=== PATIENT | male | born 1980 | race Caucasian/White ===

== ENCOUNTER 2021-02-06 23:51 | Inpatient (IN) ==
[2021-02-07] MEDS ORDERED: Ondansetron 4 MG/2 ML VIAL IVP PRN (02:48)
[2021-02-07] MEDS ORDERED: Melatonin 3 MG TABLET PO PRN (02:48)
[2021-02-07] MEDS ORDERED: Acetaminophen 325 MG TABLET PO PRN (02:48)
[2021-02-07] MEDS ORDERED: Naloxone 0.4 MG/ML INJ IVP PRN (02:48)
[2021-02-07] MEDS ORDERED: *HR* Promethazine 25 MG/ML VIAL IM PRN (02:48)
[2021-02-07] MEDS: 0.9 % Sodium Chloride 1,000 ML IVC SCH ×2 (03:31→09:44)
[2021-02-07 05:35] LABS: Bacteria,Urine Few per hpf (None-Few); Bilirubin,Urine Negative (Negative); Blood,Urine Negative (Negative); Clarity,Urine Clear (Clear); Color,Urine Light-Yellow (Yellow); Glucose,Urine (UA) Normal (Normal); Hyaline Casts,Urine Few per lpf (None Seen); Ketones,Urine Negative (Negative); Leukocyte Esterase,Urine Negative (Negative); Mucus,Urine Few per lpf (None-Few); Nitrite,Urine Negative (Negative); PH,Urine 5.5 pH Units (5.0-8.0); Protein,Urine 50 mg/dL (Neg-Trace); RBC,Urine 0-3 per hpf (0-3); Specific Gravity,Urine 1.018 (1.010-1.025); Squamous Epithelial Cell,Urine Few per hpf (None-Few); Urobilinogen,Urine Normal (Normal)
[2021-02-07] MEDS ORDERED: 0.9 % Sodium Chloride 1,000 ML IVC ONE (05:37)
[2021-02-07 05:46] LABS: Basophils # 0.1 K/mcL (0.0-0.2); Basophils % 0.5 %; Eosinophils # 0.1 K/mcL (0.0-0.6); Eosinophils % 1.3 %; Hemoglobin 14.2 g/dL (12.9-16.9); Immature Granulocytes % 0.1 % (0-4); Lymphocytes # 2.8 K/mcL (0.6-4.6); Lymphocytes % 30.2 %; Mean Corpuscular Hemoglobin 29.2 pg (28.0-33.3); Mean Corpuscular Volume 88.5 fL (83.0-100.0); Monocytes # 0.9 K/mcL (0.0-1.3); Monocytes % 9.3 %; Neutrophils # 5.5 K/mcL (1.6-8.9); Platelet Count 263 K/mcL (140-400); Red Blood Count 4.86 M/mcL (4.19-5.50); Red Cell Distribution Width 13.5 % (11.5-14.5); Segmented Neutrophils % 58.6 %; White Blood Count 9.3 K/mcL (4.3-11.1)
[2021-02-07 05:54] LABS: INR 1.1; Prothrombin Time 12.3 Seconds (9.4-12.1)
[2021-02-07 06:00] LABS: Protein/Creatinine Ratio,Urine 0.19 mg/mg (0.00-0.20); Sodium, Urine 75.8 mEq/L
[2021-02-07 06:05] LABS: Calcium 8.4 mg/dL (8.6-10.3); Magnesium 2.8 mg/dL (1.6-2.6); Phosphorous 9.8 mg/dL (2.7-4.5); Potassium 3.8 mEq/L (3.5-5.1); Uric Acid 13.2 mg/dL (2.3-7.6)
[2021-02-07] MEDS ORDERED: Sodium Bicarbonate 75 MEQ in 0.45 % Sodium Chloride 1,000 ML IVC SCH (09:00)
[2021-02-07] MEDS ORDERED: *HR* Buprenorphine HCl 8 MG TAB.SUBL SL SCH (09:00)
[2021-02-07] MEDS: Sodium Bicarbonate 75 MEQ in 0.45 % Sodium Chloride 1,000 ML IVC SCH ×2 (10:12→18:27)
[2021-02-07] MEDS: Calcium Acetate 667 MG CAPSULE PO SCH ×2 (11:38→15:54)
[2021-02-07] MEDS: buprenorphine HCL 8 MG, buprenorphine HCL 6 MG SL SCH (13:27)
[2021-02-08 01:36] LABS: Calcium 9.2 mg/dL (8.6-10.3); Magnesium 2.6 mg/dL (1.6-2.6); Potassium 4.4 mEq/L (3.5-5.1)
[2021-02-08] MEDS: Sodium Bicarbonate 75 MEQ in 0.45 % Sodium Chloride 1,000 ML IVC SCH (03:48)
[2021-02-08] MEDS: Calcium Acetate 667 MG CAPSULE PO SCH (07:03)
[2021-02-08] MEDS: buprenorphine HCL 8 MG, buprenorphine HCL 6 MG SL SCH (07:23)
[2021-02-09 06:43] VITALS: BP 113/57
== END 2021-02-08 11:51 | disposition home or self-care (01) | DRG 469 ==
LOC: 2ANU → SUATTDRO 02-07 17:30
PROVIDERS: ADMIT Internal Medicine; ATTEND Internal Medicine